=== PATIENT | male | born 1990 | race Caucasian/White ===

== ENCOUNTER 2017-02-14 13:54 | Observation (INO) | payer OTHER ==
[~2017-02-14] VITALS: Ht 182.9 cm; Wt 120.0 kg
[2017-02-14 14:15] LABS: BASO % 0.3 % (0.2-1.2); EOS # 0.5 10_X3_uL (0.0-0.5); GRAN # 5.5 10_X3_uL (1.8-5.4); GRAN % 57.7 % (34.0-67.9); HEMATOCRIT 45.2 % (40-51); LYMPH # 2.6 10_X3_uL (1.3-3.6); LYMPH % 27.2 % (21.8-53.1); MEAN CORPUSCULAR HEMOGLOBIN 30.1 pg (27.0-33.0); MEAN CORPUSCULAR HGB CONC 33.2 g/dL (32.0-36.0); MEAN CORPUSCULAR VOLUME 90.8 fL (79-92); MEAN PLATELET VOLUME 9.8 fl (7.5-11.5); MONO # 0.9 10_X3_uL (0.3-0.8); MONO % 9.8 % (5.3-12.2); PLATELET COUNT 258 x10_3/uL (163-337); RED BLOOD COUNT 4.98 x10_6/uL (4.6-6.1); RED CELL DISTRIBUTION WIDTH 13.8 % (11.6-14.4); WHITE BLOOD COUNT 9.6 x10_3/uL (4.2-9.1)
[2017-02-14 14:34] LABS: ALBUMIN 4.1 gm/dL (3.4-5.0); ALKALINE PHOSPHATASE 76 U/L (50-136); ALT/SGPT 181 U/L (7.53-40.17); AST/SGOT 70 U/L (6.66-35.34); BILIRUBIN,TOTAL 0.19 mg/dL (0.0-1.0); BLOOD UREA NITROGEN 18 mg/dL (7-18); CALCIUM 9.2 mg/dL (8.7-10.7); CARBON DIOXIDE 21 mmol/L (21-32); CREATINE KINASE 161 U/L (35-232); GLUCOSE,RANDOM 138 mg/dL (70-99); POTASSIUM 4.6 mmol/L (3.5-5.1); SODIUM 141 mmol/L (136-145); TOTAL PROTEIN 7.3 gm/dL (6.4-8.2)
[2017-02-14 14:58] LABS: URINE BILIRUBIN NEGATIVE (NEGATIVE); URINE BLOOD NEGATIVE (NEGATIVE); URINE GLUCOSE (UA) NORMAL (NORMAL); URINE KETONE NEGATIVE (NEGATIVE); URINE LEUKOCYTE ESTERASE NEGATIVE (NEGATIVE); URINE NITRATE NEGATIVE (NEGATIVE); URINE PROTEIN NEGATIVE (NEGATIVE); UROBILINOGEN NORMAL mg/dL (<1.0)
[2017-02-15 07:06] LABS: BASO % 0.2 % (0.2-1.2); EOS # 0.5 10_X3_uL (0.0-0.5); EOS % 5.8 % (0.8-7.0); GRAN # 4.8 10_X3_uL (1.8-5.4); GRAN % 54.8 % (34.0-67.9); HEMATOCRIT 44.9 % (40-51); HEMOGLOBIN 14.7 g/dL (13.7-17.5); LYMPH # 2.6 10_X3_uL (1.3-3.6); LYMPH % 29.4 % (21.8-53.1); MEAN CORPUSCULAR HEMOGLOBIN 30.1 pg (27.0-33.0); MEAN CORPUSCULAR HGB CONC 32.7 g/dL (32.0-36.0); MEAN CORPUSCULAR VOLUME 91.8 fL (79-92); MONO # 0.9 10_X3_uL (0.3-0.8); MONO % 9.8 % (5.3-12.2); PLATELET COUNT 249 x10_3/uL (163-337); RED BLOOD COUNT 4.89 x10_6/uL (4.6-6.1); RED CELL DISTRIBUTION WIDTH 13.7 % (11.6-14.4); WHITE BLOOD COUNT 8.8 x10_3/uL (4.2-9.1)
[2017-02-15 07:29] LABS: BLOOD UREA NITROGEN 14 mg/dL (7-18); CALCIUM 8.9 mg/dL (8.7-10.7); CARBON DIOXIDE 26 mmol/L (21-32); CREATININE 0.8 mg/dL (0.6-1.3); GLUCOSE,RANDOM 88 mg/dL (70-99); POTASSIUM 3.8 mmol/L (3.5-5.1); SODIUM 142 mmol/L (136-145)
[2017-02-15 08:18] LABS: CKMB 1.9 ng/ml (0.0-5.0)
[2017-02-15 08:22] LABS: TROP-I < 0.30 NG/ML (0.00-0.30)
[2017-02-17 13:08] LABS: HBS AG SCREEN Non Reactive (NR); HCV Reactive (NR)
== END 2017-02-15 17:17 | disposition other institution (70) ==
LOC: ER 13:54 → MS 17:57 → UNDODEPER 02-17 14:15
PROVIDERS: Emergency Medicine; ADMIT Family Medicine
DX: I47.1 Supraventricular tachycardia (principal); R00.2 Palpitations; R42 Dizziness and giddiness; R51 Headache; I10 Essential (primary) hypertension; I45.10 Unspecified right bundle-branch block; F41.9 Anxiety disorder, unspecified; R07.89 Other chest pain; B19.20 Unspecified viral hepatitis C without hepatic coma; Z87.898 Personal history of other specified conditions; G47.00 Insomnia, unspecified; F17.210 Nicotine dependence, cigarettes, uncomplicated; Z79.899 Other long term (current) drug therapy; Z80.1 Family history of malignant neoplasm of trachea, bronchus and lung; Z81.3 Family history of other psychoactive substance abuse and dependence; Z82.49 Family history of ischemic heart disease and other diseases of the circulatory system
CPT/HCPCS: 36415; 71010; 80048; 80053; 80074; 80307; 81003; 82550; 82553; 84443; 85025; 93005; 93041; 96361; 96374; 96375; 96376; 99070; 99285-25; G0378; J7040